=== PATIENT | female | born 1950 | race Caucasian/White ===

== ENCOUNTER → 2016-08-24 08:03 | Outpatient (CLI) | payer OTHER | END | disposition home or self-care (01) | LOC: D.RT 08-21 08:00 | DX: J47.9 Bronchiectasis, uncomplicated (principal) ==

== ENCOUNTER → 2016-11-21 15:55 | Outpatient (CLI) | payer OTHER | END | disposition home or self-care (01) | LOC: D.RAD 15:55 | DX: J47.9 Bronchiectasis, uncomplicated (principal) ==